=== PATIENT | male | born 1960 | race Caucasian/White ===

== ENCOUNTER 2018-10-29 14:13 | Emergency (ER) | payer BC ==
[2018-10-29] MEDS ORDERED: HYDROCODONE/APAP 7.5/325 MG TAB ONE (16:16)
[2018-10-29] MEDS ORDERED: KETOROLAC 30 MG/ML INJ ONE (16:16)
[2018-10-29 16:21] LABS: Absolute Lymphocytes (CBC) 2.9 K/uL (0.7-4.9); Absolute Monocytes 0.3 K/uL (0.1-1.3); Basophils % 0.6 % (0-1.3); Hematocrit 43.7 % (39.6-49.0); Lymphocytes % 54.5 % (15.3-44.8); MPV 7.3 fL (7.6-11.3); Monocytes % 6.3 % (3.3-12.3)
[2018-10-29 16:26] LABS: Protime INR 0.99
--- NOTE | 2018-10-29 16:34 | RAD REPORT ---
EXAM DESCRIPTION: Kun Fischer (2 Views)10/29/2018 4:25 pm CLINICAL HISTORY: Cough COMPARISON: None FINDINGS: The interstitial pattern within the lungs appears mildly prominent. The heart is normal size IMPRESSION: Mild prominence of the interstitial pattern within the lungs may indicate a mild atypica l infection
[2018-10-29 16:42] LABS: Albumin 4.1 g/dL (3.4-5.0); Bilirubin Direct 0.1 mg/dL (0-0.2); Bilirubin Total 0.4 mg/dL (0.2-1.0); Magnesium 2.2 mg/dL (1.8-2.4); Potassium 3.9 mmol/L (3.5-5.1); Protein, Total 7.7 g/dL (6.4-8.2)
--- NOTE | 2018-10-29 17:24 | RAD REPORT ---
EXAM DESCRIPTION: CT - Thorax W/ Con - 10/29/2018 4:55 pm CLINICAL HISTORY: Hemoptysis COMPARISON: 10/29 xray TECHNIQUE: Computed axial tomography of the chest was obtained. 100 cc Isovue 300 was administered i ntravenously. All CT scans are performed using dose optimization technique as appropriate and may include automated exposure control or mA/KV adjustment according to patient size. FINDINGS: Moderate paraseptal and centrilobular emphysema. Mild bilateral subpleural interstitial catherine ng opacities. A lung consolidation is not noted. No mediastinal or hilar lymphadenopathy is seen. A pleural effusion is not present. A pericardial effusion is not seen. IMPRESSION: Moderate COPD Mild subpleural interstitial lung opacities have the appearance of mild pulmonary fibrosis
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
[2018-10-29 19:12] LABS: Blood Morphology Comment NOT SEEN (NOT SEEN); Platelet Estimate ADEQ; Urine White Blood Cell Casts OK
== END 2018-10-29 18:46 | disposition left against medical advice (07) ==
LOC: ER 14:13
DX: J44.9 Chronic obstructive pulmonary disease, unspecified (principal); R04.2 Hemoptysis; M54.5 Low back pain; F17.210 Nicotine dependence, cigarettes, uncomplicated; Z53.29 Procedure and treatment not carried out because of patient's decision for other reasons
CPT/HCPCS: 36415; 71046; 71260; 80048; 80076; 83735; 83880; 85025; 85610; 96374; 99284; Q9967